=== PATIENT | female | born 1960 | race Caucasian/White ===

== ENCOUNTER 2025-07-28 12:27 | Outpatient (REF) | payer OTHER, SELFPAY | END 2025-07-28 23:59 | disposition home or self-care (01) | LOC: WOUND 12:27 | PROVIDERS: ATTENDING PHYSICIAN Registered Nurse | DX: I87.2 Venous insufficiency (chronic) (peripheral) (principal); L97.212 Non-pressure chronic ulcer of right calf with fat layer exposed; I89.0 Lymphedema, not elsewhere classified | CPT/HCPCS: 99204 ==

== ENCOUNTER 2025-08-08 13:08 | Outpatient (REF) | payer OTHER, SELFPAY | END 2025-08-09 23:59 | disposition home or self-care (01) | LOC: WOUND 13:08 | PROVIDERS: ATTENDING PHYSICIAN Registered Nurse | DX: I87.2 Venous insufficiency (chronic) (peripheral) (principal); L97.212 Non-pressure chronic ulcer of right calf with fat layer exposed; I89.0 Lymphedema, not elsewhere classified | CPT/HCPCS: 99214 ==